=== PATIENT | female | born 1990 | race African-American/Black ===

== ENCOUNTER 2016-10-26 14:50 | Emergency (ER) | payer OTHER, BC ==
[2016-10-26 15:39] VITALS: BP 128/86
--- NOTE | 2016-10-26 15:41 | PHYS DOC ---
Past Medical History Past Medical History: No Pertinent History Past Surgical History: No Surgical History Alcohol Use: None Drug Use: None Adult General Chief Complaint Chief Complaint: COUGH HPI HPI Patient is a 26 year old female who presents with cough and sore throat for two days. Denies fever but reports feeling warm to touch. Denies abdominal, pain , n/v/d, or accompanying ysmptoms./ Review of Systems Review of Systems Constitutional: Denies fever or chills Eyes: Denies change in visual acuity, redness, or eye pain HENT: Denies nasal congestion. Sore throat for two days. Respiratory: Denies shortness of breath. Cough one day Cardiovascular: No additional information not addressed in HPI GI: Denies abdominal pain, nausea, vomiting, bloody stools or diarrhea : Denies dysuria or hematuria Musculoskeletal: Denies back pain or joint pain Integument: Denies rash or skin lesions Neurologic: Denies headache, focal weakness or sensory changes Endocrine: Denies polyuria or polydipsia Allergies Allergies Allergies Coded Allergies Type Severity Reaction Last Updated Verified No Known Drug Allergies 08/12/15 No Physical Exam Physical Exam Constitutional: Well developed, well nourished, no acute distress, non-toxic appearance. HENT: Normocephalic, atraumatic, bilateral external ears normal, oropharynx moist, nose normal. Bilateral tonsillar erythema without exudate Eyes: PERRLA, EOMI, conjunctiva normal, no discharge. Neck: Normal range of motion, no tenderness, supple, no stridor. Cardiovascular:Heart rate regular rhythm, no murmur Lungs & Thorax: Bilateral breath sounds clear to auscultation Abdomen: Bowel sounds normal, soft, no tenderness, no masses, no pulsatile masses. Skin: Warm, dry, no erythema, no rash. Back: No tenderness, no CVA tenderness. Extremities: No tenderness, no cyanosis, no clubbing, ROM intact, no edema. Neurologic: Alert and oriented X 3, normal motor function, normal sensory function, no focal deficits noted. Psychologic: Affect normal, judgement normal, mood normal. [] Current Patient Data Vital Signs Vital Signs Date Time Temp Pulse Resp B/P Pulse Ox O2 Delivery O2 Flow Rate FiO2 10/26/16 15:39 98.3 76 20 96 Room Air 98.3 Lab Values Laboratory Tests Test 1/26/17 15:50 Influenza Type A Antigen Negative (NEGATIVE) Influenza Type B Antigen Negative (NEGATIVE) EKG EKG [] Radiology/Procedures Radiology/Procedures [] Impressions: 1. Viral illness Course & Med Decision Making Course & Med Decision Making Pertinent Labs and Imaging studies reviewed. (See chart for details) [] Dragon Disclaimer Dragon Disclaimer This electronic medical record was generated, in whole or in part, using a voice recognition dictation system. Departure Departure Impression: Primary Impression: Viral illness Disposition: HOME, SELF-CARE Condition: STABLE Referrals: NO PCP (PCP) Patient Instructions: Viral Infections, [id number], Viral Pharyngitis Additional Instructions: 1. Take Ibuprofen or Tylenol for fever and discomfort. 2. Follow up with primary doctor in 1-2 days. 3. Return if problems or concerns Scripts Benzonatate (Tessalon Perle)100 Mg Capsule1 Cap PO TID #21 CAP Prov:LULU MILLS APRN 10/26/16 Guaifenesin (Mucinex)600 Mg Tablet.er1 Tab PO BID #14 TAB Prov:LULU MILLS APRN 10/26/16 LULU MILLS APRN Oct 26, 2016 15:41
[2016-10-26 16:15] LABS: OBC FLU VALID
[2016-10-26] MEDS ORDERED: GUAI600T38 PO (16:41)
[2016-10-26] MEDS ORDERED: BENZ100C PO (16:41)
[2016-10-27 07:58] LABS: NEGATIVE OBC STREP NEG; POSITIVE OBC STREP POS
== END 2016-10-26 17:09 | disposition home or self-care (01) ==
LOC: ER 14:50
DX: B34.9 Viral infection, unspecified (principal)
CPT/HCPCS: 87070; 87804; 87880; 99284